=== PATIENT | male | born 1955 | race Caucasian/White ===

== ENCOUNTER 2020-04-08 23:59 | Observation (INO) ==
[2020-04-09] MEDS ORDERED: NITROGLYCERIN SL 0.4 MG/TAB TAB SL STA (00:17)
--- NOTE | 2020-04-09 00:22 | Emergency Department Note ---
Impression & Plan Non-ST elevation NC (NSTEMI) ED Provider Note Name: JUAN DIEGO ALVAREZ Age: 65 Sex: M Arrives Via: Walk-In Informant: Patient, ED Provider: Ashish Alberts MD Chief Complaint: Chest Pain Impression: NSTEMI Medical Decision Makin yr old male without PMH who's father has CAD arrives with non-exertional chest pain last few hours after episode chest pain with exertion 2 days ago. Pain resolving with SLNTG but complaining of pain radiating to back thus CTA obtained which was negative. EKG with lateral ST depressions. Labs with elevated Troponin and CXR unremarkable. Vitals with HTN initially improving with slntg. Placed nitro paste as well. ASA given along with initiating heparin bolus/gtt after discussing risks/benefits. Hospitalist consulted for further management. Without STEMI on EKG and fact that chest pain resolved I do not feel Heart Alert necessary at this time. Prior Medical Record and Triage/Nursing Notes reviewed by Me Additional history obtained from Differentials:Cardiac ischemia, aortic dissection, pulmonary embolism, pneumothorax, pneumonia, pericarditis, myocarditis, esophageal rupture, GERD, cholecystitis, pancreatitis, musculoskeletal, as well as other pathologies. Vital Signs: reviewed and remarkable for HTN Interventions: slntg, nitro paste, asa 324mg po, heparin bolus/gtt Labs:Reviewed and remarkable for ++Troponin Imaging:X ray results are stated below per my interpretation: Chest: 1 view: No infiltrate, no effusion, normal cardiac border. [facility] Radiologist interpretation reviewed by me: CTA Chest: no acute findings EKG:Per My Interpretation: Indication Chest Pain: NSR 82 bpm, qtc 467 with LAFB and no ectopy, there are anterior-lateral ST depression. Compared to EKG 02/11/19 ST depressions are new. Cardiac/Tele Monitoring: Cardiac Monitoring: An Order was placed for continuous cardiac monitoring. The monitor shows a rate of 80 with a normal sinus rhythm. Consults:Dr To BA Hospitalist Plan: Disposition:Hospitalization. Condition: Good History of Present Illness:65 yr old female arrives for evaluation of chest pain. Notes upper chest pain radiating to lower substernal chest for the last few hours. Initially noted similar, milder symptoms 2 days ago while shoveling snow which resolved with rest. Tonight symptoms occured while watching TV. Associated mild SHOB. Burning in nature. No syncope, cough, fevers, chills, nausea, vomiting, back pain, jaw pain, shoulder discomfort, abdominal pain, urinary/bowel symptoms, leg swelling, calf pain, rashes nor other symptoms. No medical history. Takes not medications. Exertion makes worse, rest makes better. ASA prior to arrival without improvement. Denies covid contacts. Father with NC and CABG history. ROS: See above HPI for pertinent positives & negatives. A total of 10 systems reviewed and were otherwise negative. Past Medical History:None Past Surgical History:Umbilical Hernia repair Family History:Father CAD Social History:Lives with , no smoking, uses chewing tobacco, occasional ETOH, retired, no drugs Home Medications:None Allergies:None Vitals:Blood Pressure: 158/102, Pulse 86, RR 20, T 36C, O2 97% on RA Physical Exam: GENERAL: Patient is anxious appearing and in mild distress. EYES: No scleral icterus, unremarkable pupils. ENT: Mucous membranes moist, no nasal congestion. NECK: No masses appreciated, nomeningismus, trachea is midline. RESPIRATORY: Mildly tachypneic on exam though not dyspneic. Clear to auscultation and equal bilaterally. No wheeze, no rhonchi. CARDIOVASCULAR: Regular rate and rhythm.No murmurs, rubs, gallops appreciated. GASTROINTESTINAL: Abdomen soft, non-tender, no peritonitis.Bowel sounds positive.No masses appreciated. BACK: No midline tenderness, no CVA tenderness EXTREMITIES: Normal motion all extremities, no cyanosis, no edema. NEUROLOGIC: Alert and oriented, no acute motor or sensory deficits, no focal weakness, cranial nerves grossly intact. SKIN: No rash, no jaundice, no diaphoresis. PSYCH: Appropriate though anxious GCS: 15 ED Course: Times/Reassessments: multiple, improving pain and looks well. Agreeable to hospitalization Ashish Alberts MD Past Med/Surg History Medical History (Updated 04/09/20 @ 02:05 by Ashish Alberts MD) Umbilical hernia without obstruction and without gangrene Surgical History H/O umbilical hernia repair (03/11/19) Umbilical Hernia Open Repair With Mesh Dr. Vivas 03-11-19 History of colonoscopy History of tooth extraction ALL TEETH 25 YRS AGO Family History (Updated 04/06/19 @ 13:08 by Milly Soriano MD) Mother Breast cancer Father Colorectal cancer Coronary heart disease Sister No problems noted. Son No problems noted. Daughter No problems noted. Denies family history of Ovarian cancer Prostate cancer Myocardial infarction Social History Smoking Status: Never smoker Second Hand Exposure: No; Hx Alcohol Use: Yes Alcohol type: beer Hx Substance Use: No Preferred Language: Yi Communication Ability: Effective Visual Impairment: No Limitations Hearing Ability: Normal Incident Coordinator Required: No Beliefs That Will Affect Care: None marital status: Current Living Situation: Spouse current occupational status: retired Feels Safe at Home: Yes Childhood Exposure to Second-Hand Smoke: Yes Dental Care, Regularly: No Physical Activity Frequency: 3-4 Times per Week Seatbelt Use: always Sunscreen Use: No Assistive Devices: Denture - Upper and Denture - Lower Allergies Allergies Allergy/AdvReac Type Severity Reaction Status Date / Time No Known Allergies Allergy Verified 04/09/20 00:26 Home Meds Home Medications Medication Instructions Recorded Confirmed No Known Home Medications 04/06/19 04/09/20 Results & Data (ED) Vital Signs Vital Signs - 24 hr 04/09/20 00:02 04/09/20 00:45 04/09/20 01:45 Temperature 36 C L Temperature Source Temporal Artery Scan Pulse Rate 89 Pulse Rate [Right] 96 H 82 Pulse Rhythm Regular Pulse Rhythm [Right] Regular Regular Pulse Strength Normal Pulse Strength [Right] Normal Normal Respiratory Rate 20 16 16 Respiratory Effort / Characteristics Non-Labored Spontaneous Non-Labored Spontaneous Non-Labored Spontaneous Respiratory Depth Normal Normal Normal Blood Pressure 158/102 H Blood Pressure [Right Arm] 126/82 149/86 H Blood Pressure Mean 120 Blood Pressure Mean [Right Arm] 96 107 Blood Pressure Position Sitting Blood Pressure Position [Right Arm] Sitting Lying Pulse Oximetry 97 99 98 Oxygen Delivery Method Room Air Room Air Room Air Sepsis Recent Fever Within 48 Hours No Sepsis New/Unexplained Change in Mental Status N/A Sepsis Action Taken by Nursing No Action Required 04/09/20 02:52 Temperature Temperature Source Pulse Rate Pulse Rate [Right] 64 Pulse Rhythm Pulse Rhythm [Right] Regular Pulse Strength Pulse Strength [Right] Normal Respiratory Rate 16 Respiratory Effort / Characteristics Non-Labored Spontaneous Respiratory Depth Normal Blood Pressure Blood Pressure [Right Arm] 147/95 H Blood Pressure Mean Blood Pressure Mean [Right Arm] 112 Blood Pressure Position Blood Pressure Position [Right Arm] Lying Pulse Oximetry 96 Oxygen Delivery Method Room Air Sepsis Recent Fever Within 48 Hours Sepsis New/Unexplained Change in Mental Status Sepsis Action Taken by Nursing Laboratory Data Result diagrams: 04/09/20 00:12 04/09/20 00:12 Lab Results 04/09/20 04/09/20 04/09/20 Range/Units 00:12 00:12 00:12 WBC 9.37 (4.8-10.8) K/uL RBC 5.48 (4.7-6.1) M/uL Hgb 16.7 (14.0-18.0) g/dL Hct 48.5 (42-52) % MCV 88.5 (80-100) fL MCH 30.5 (25-34) pg MCHC 34.4 (32-36) g/dL RDW Std Deviation 42.8 (36.4-46.3) fL RDW Coeff of Crys 13.1 (11.5-14.5) % Plt Count 262 (130-400) K/uL MPV 10.2 (7.4-10.4) fL Immature Gran % (Auto) 0.2 % Neut % (Auto) 65.0 % Lymph % (Auto) 25.3 % [place] % (Auto) 6.1 % Eos % (Auto) 3.0 % Baso % (Auto) 0.4 % Neut # (Auto) 6.09 (1.4-6.5) K/uL Lymph # (Auto) 2.37 (1.2-3.4) K/uL [place] # (Auto) 0.57 (0.11-0.59) K/uL Eos # (Auto) 0.28 (0-0.5) K/uL Baso # (Auto) 0.04 (0-0.2) K/uL Immature Gran # (Auto) 0.02 (0.00-0.02) K/uL PT 10.1 (9.0-12.0) Seconds INR 1.0 (0.9-1.1) APTT 25.2 (21.0-31.0) Seconds PTT Ratio 1.0 D-Dimer 290 (0-500) ug/L FEU Sodium 143 (136-145) mmol/L Potassium 3.6 (3.5-5.1) mmol/L Chloride 111 H (98-107) mmol/L Carbon Dioxide 23 (21-32) mmol/L Anion Gap 9.0 (3-11) BUN 20 H (7-18) mg/dl Creatinine 1.10 (0.6-1.4) mg/dl Est Cr Clr Drug Dosing 70.7 ml/min Est GFR ( Amer) 81.2 Est GFR (Non-Af Amer) 70.1 BUN/Creatinine Ratio 18.5 (10-20) Glucose 193 H (70-99) mg/dl Calcium 9.6 (8.5-10.1) mg/dl Magnesium 2.0 (1.8-2.4) mg/dl Troponin I 0.406 H* (0-0.045) ng/ml COVID-19 Eval Order SARS-CoV-2, RNA, NAAT (NEGATIVE) 04/09/20 04/09/20 Range/Units 00:12 00:12 WBC (4.8-10.8) K/uL RBC (4.7-6.1) M/uL Hgb (14.0-18.0) g/dL Hct (42-52) % MCV (80-100) fL MCH (25-34) pg MCHC (32-36) g/dL RDW Std Deviation (36.4-46.3) fL RDW Coeff of Crys (11.5-14.5) % Plt Count (130-400) K/uL MPV (7.4-10.4) fL Immature Gran % (Auto) % Neut % (Auto) % Lymph % (Auto) % [place] % (Auto) % Eos % (Auto) % Baso % (Auto) % Neut # (Auto) (1.4-6.5) K/uL Lymph # (Auto) (1.2-3.4) K/uL [place] # (Auto) (0.11-0.59) K/uL Eos # (Auto) (0-0.5) K/uL Baso # (Auto) (0-0.2) K/uL Immature Gran # (Auto) (0.00-0.02) K/uL PT (9.0-12.0) Seconds INR (0.9-1.1) APTT (21.0-31.0) Seconds PTT Ratio D-Dimer (0-500) ug/L FEU Sodium (136-145) mmol/L Potassium (3.5-5.1) mmol/L Chloride (98-107) mmol/L Carbon Dioxide (21-32) mmol/L Anion Gap (3-11) BUN (7-18) mg/dl Creatinine (0.6-1.4) mg/dl Est Cr Clr Drug Dosing ml/min Est GFR ( Amer) Est GFR (Non-Af Amer) BUN/Creatinine Ratio (10-20) Glucose (70-99) mg/dl Calcium (8.5-10.1) mg/dl Magnesium (1.8-2.4) mg/dl Troponin I (0-0.045) ng/ml COVID-19 Eval Order Covid19 [facility]Now [facility] SARS-CoV-2, RNA, NAAT NEGATIVE (NEGATIVE) Administered Medications Sodium Chloride (Nss 1000ml) 1,000 mls @ 125 mls/hr IV .Q8H [facility] Stop: 05/09/20 00:59 Last Admin: 04/09/20 01:07 Dose: 125 mls/hr Documented by: [id number] Heparin Sodium/Dextrose (Heparin Sodium/Dextrose) 25,000 units in 500 mls @ 0.02 mls/hr IV .Q24H REY; Protocol Stop: 05/09/20 02:14 Last Admin: 04/09/20 02:19 Dose: 1,350 units/hr, 27 mls/hr Documented by: [id number] Cosigned by: [id number] Discontinued Medications Aspirin (Aspirin 81 Mg Chew) 324 mg PO NOW STA Stop: 04/09/20 02:09 Last Admin: 04/09/20 02:19 Dose: 324 mg Documented by: [id number] Heparin Sodium (Porcine) (Heparin Sod (Porcine) 1000 Unit/Ml 10 Ml Vial) Confirm Administered Dose 10,000 units .ROUTE .STK-MED ONE Stop: 04/09/20 02:17 Last Admin: 04/09/20 02:19 Dose: 6,000 units Documented by: [id number] Cosigned by: [id number] Heparin Sodium/Dextrose (Heparin Iv Standard With Bolus) 1 ea IV NOW STA; Protocol Stop: 04/09/20 02:09 Last Admin: 04/09/20 02:20 Dose: 1 ea Documented by: [id number] Ioversol (Optiray 320 125ml) 125 ml IV ONCE ONE Stop: 04/09/20 01:34 Last Admin: 04/09/20 01:34 Dose: 117 ml Documented by: [id number] Nitroglycerin (Nitroglycerin Sl 0.4 Mg/Tab Tab) 0.4 mg SL NOW STA Stop: 04/09/20 00:18 Last Admin: 04/09/20 00:35 Dose: 0.4 mg Documented by: [id number] Nitroglycerin (Nitroglycerin 2% Ointment 30gm Tube) 1 inch EXT NOW ONE Stop: 04/09/20 00:57 Last Admin: 04/09/20 01:07 Dose: 1 inch Documented by: [id number] Discharge Plan Visit Data Chief Complaint: Chest Pain Stated Complaint: CHEST PAIN ED Provider: Ashish Alberts Discharge Problem: Non-ST elevation NC (NSTEMI) Forms Stand Alone Forms: [employer] Prescriptions Prescriptions: No Action No Known Home Medications RF: 0
[2020-04-09 00:23] LABS: Basophils # (auto) 0.04 K/uL (0-0.2); Basophils % (auto) 0.4 %; Eosinophils # (auto) 0.28 K/uL (0-0.5); Hematocrit (blood only) 48.5 % (42-52); Hemoglobin 16.7 g/dL (14.0-18.0); Immature Granulocytes # (auto) 0.02 K/uL (0.00-0.02); Immature Granulocytes % (auto) 0.2 %; Lymphocytes # (auto) 2.37 K/uL (1.2-3.4); Lymphocytes % (auto) 25.3 %; Mean Corpuscular Hemoglobin 30.5 pg (25-34); Mean Corpuscular Hgb Conc 34.4 g/dL (32-36); Mean Corpuscular Volume 88.5 fL (80-100); Mean Platelet Volume 10.2 fL (7.4-10.4); Monocytes # (auto) 0.57 K/uL (0.11-0.59); Monocytes % (auto) 6.1 %; Neutrophils # (auto) 6.09 K/uL (1.4-6.5); Platelet Count 262 K/uL (130-400); RDW Coefficient of Variation 13.1 % (11.5-14.5); RDW Standard Deviation 42.8 fL (36.4-46.3); Red Blood Count 5.48 M/uL (4.7-6.1); White Blood Count 9.37 K/uL (4.8-10.8)
[2020-04-09 00:40] LABS: BUN Creatinine Ratio 18.5 (10-20); Calcium 9.6 mg/dl (8.5-10.1); Creatinine Clr Calc Pharmacy 70.7 ml/min; Est GFR (African American) 81.2; Est GFR (Non-African American) 70.1; Potassium 3.6 mmol/L (3.5-5.1)
[2020-04-09 00:52] LABS: D Dimer 290 ug/L FEU (0-500); Partial Thromboplastin Time 25.2 Seconds (21.0-31.0); Prothrombin Time 10.1 Seconds (9.0-12.0)
[2020-04-09 00:56] LABS: Troponin I 0.406 ng/ml (0-0.045)
[2020-04-09] MEDS ORDERED: NITROGLYCERIN 2% OINTMENT 30GM TUBE EXT ONE (00:56)
[2020-04-09] MEDS ORDERED: SODIUM CHLORIDE 0.9% 1000ML 1,000 ML IV SCH (01:00)
[2020-04-09] MEDS ORDERED: OPTIRAY 320 125ml IV ONE (01:33)
[2020-04-09] MEDS ORDERED: ASPIRIN 81 MG CHEW PO STA (02:08)
[2020-04-09] MEDS ORDERED: HEPARIN SOD (PORCINE) 1000 UNIT/ML 10 ML VIAL ONE (02:16)
[2020-04-09] MEDS: HEPARIN SODIUM/DEXTROSE 25,000 UNITS/500 ML BAG IV SCH ×2 (02:19→15:35)
--- NOTE | 2020-04-09 03:46 | History & Physical Report ---
Date of Service April 09, 2020 Assessment & Plan Admission and Anticipated Discharge Date Admission Date: Previously healthy 65 yo M presenting with two episodes of chest pain, initially with activity and again at rest, with elevated troponin and EKG changes consistent with ST depression in V3,4,5,6. Troponin elevated at 0.406 CTA w/o PE or dissection, EKG CXR has elevation of left hemidiaphragm but otherwise unchanged from prior. - given Heparin with bolus, started ASA and Atorvastatin - sl nitro available prn - trending troponin - cardiology consulted - NPO after midnight for possible cath. tomorrow if indicated - ordered A1c and lipid profile - discussed dietary and lifestyle changes going forward for secondary prevention DVT: Heparin Code: full Diet: NPO after midnight History of Present Illness Chief Complaint: chest pain Primary Care Provider: Milly Soriano MD Kentrell Mendoza is a 65-year-old male who is here for chest pain. He developed the pain one day prior when he was removing snow from his roof. He had the pain in his mid chest, and thought it was due to being out in the cold. He came inside and the pain improved after 10-15 minutes. Then on the night of 04/08 he developed the pain again after watching a race and eating cheese and crackers. He has no history of GERD. The pain went from his lower neck down his central chest. At this time he changed and went to the ER. His pain was a 5/10 when he got to the ER, currently he is pain free with the pain lasting approximately 30- 45 minutes. Unclear if the Nitro was what lead to his improved symptoms. He also noted some trouble breathing with the chest pain, that he describes as breathing heavy and discomfort at the tops of his lungs. His only past medical history includes a umbilical hernia that was repaired without complications one year prior. He is not on any medications. He states that at home his blood pressure is normal, but he is stressed with what is happening. Social: uses snuff 0.5 - 1 can per day for the last 40 years states he has been exercising less since the pandemic started states he has had some weight gain since the pandemic started ED course: IVF, nitro, ASA CTA chest - negative Allergies Allergy/AdvReac Type Severity Reaction Status Date / Time No Known Allergies Allergy Verified 04/09/20 00:26 Home Medications Medication Instructions Recorded Confirmed Type No Known Home Medications 04/06/19 04/09/20 History Past Med/Surg History Medical History Umbilical hernia without obstruction and without gangrene Surgical History H/O umbilical hernia repair (03/11/19) Umbilical Hernia Open Repair With Mesh Dr. Vivas 03-11-19 History of colonoscopy History of tooth extraction ALL TEETH 25 YRS AGO Family History Mother Breast cancer Father Colorectal cancer Coronary heart disease Sister No problems noted. Son No problems noted. Daughter No problems noted. Denies family history of Ovarian cancer Prostate cancer Myocardial infarction Social History Smoking Status: Never smoker Second Hand Exposure: No; Do You Dip or Chew Tobacco: Yes; Tobacco Cessation Education Requested by Patient: No Hx Alcohol Use: No Hx Substance Use: No Preferred Language: [place]se Communication Ability: Effective Visual Impairment: No Limitations Hearing Ability: Normal Automotive Alignment Specialist Required: No Beliefs That Will Affect Care: None marital status: Current Living Situation: Spouse current occupational status: retired Other Information That Helps Us Care for You: No Feels Safe at Home: Yes Safety Concerns: Feels Safe At This Time Childhood Exposure to Second-Hand Smoke: Yes Dental Care, Regularly: No Physical Activity Frequency: 3-4 Times per Week Seatbelt Use: always Sunscreen Use: No Assistive Devices: None Review of Systems Review of Systems: Constitutional: denies fevers, chills, nausea, vomiting admits intermittent night sweats Head: denies headache, confusion admits lightheadedness Neuro: denies syncope, dysphagia, dysarthria, focal weakness, numbness, tingling ENT: denies stuffiness, sneezing, sore throat Cardiac: denies palpitations, hx. murmur, edema Pulm: denies cough, sputum production GI: denies diarrhea, constipation : denies dysuria Physical Exam Constitutional: WD/WN, vitals as above Eyes: PERRL, conjunctivae normal, anicteric sclerae Neck: normal visual inspection and trachea midline Respiratory: normal respiratory effort, lungs clear to auscultation Cardiovascular: RRR, no murmur, no edema Chest (Breasts): normal inspection/palpation of breasts Gastrointestinal (Abdomen): normal bowel sounds, soft, nontender, no hepatosplenomegaly Skin: no rashes, warm and dry Neurologic: awake; no focal motor deficits Psychiatric: A+Ox3, euthymic affect Apperance: appropriately dressed Eye Contact: good eye contact Results & Data Results & Data ([facility]) Vital Signs (Past 12 Hours) Vital Signs Temp Pulse Pulse Resp BP BP Pulse Ox 04/09/20 02:52 64 16 147/95 H 96 04/09/20 01:45 82 16 149/86 H 98 04/09/20 00:45 96 H 16 126/82 99 04/09/20 00:02 36 C L 89 20 158/102 H 97 CBC Results Results Complete Blood Count Results: RBC 5.48 M/uL (4.7-6.1) 04/09/20 WBC 9.37 K/uL (4.8-10.8) 04/09/20 Hgb 16.7 g/dL (14.0-18.0) 04/09/20 Hct 48.5 % (42-52) 04/09/20 Plt Count 262 K/uL (130-400) 04/09/20 Chemistry (BMP) Results BMP Results: Sodium 143 mmol/L (136-145) 04/09/20 Potassium 3.6 mmol/L (3.5-5.1) 04/09/20 Chloride 111 mmol/L (98-107) H 04/09/20 BUN 20 mg/dl (7-18) H 04/09/20 Creatinine 1.10 mg/dl (0.6-1.4) 04/09/20 Glucose 193 mg/dl (70-99) H 04/09/20 Code Status & VTE Plan VTE Prophylaxis Plan VTE Prophylaxis will be ordered: Yes Supervising Physician Co-Signing Physician Notes Patient seen and examined, chart reviewed, case discussed with Dr. Benton and I agree with his assessment and plan as above. Briefly, patient with exertional CP yesterday, CP at rest today. He states he has actually had exertional CP several times this month while out in the cold which resolves with 10-15 minutes of rest. Had episode of resting CP today. EKG with lateral ST depressions. Troponin x 1 elevated at 0.406 Patient CP free Unremarkable exam. No evidence of CHF Labs and images reviwed Assessment/Plan - Concern for NSTEMI -Heparin gtt -Trend troponin -Tele monitoring -Check AIC and Lipids for risk stratification -2D echo -REmainder of plan as above Resident Activity Tracking Resident Involvement: Resident Care Provided Care Provided: Adult Hospital Medicine
[2020-04-09] MEDS ORDERED: POLYETHYLENE (MIRALAX) 17 GM PACK PO PRN (04:06)
[2020-04-09] MEDS ORDERED: NITROGLYCERIN SL 0.4 MG/TAB TAB SL PRN (04:06)
[2020-04-09] MEDS ORDERED: ACETAMINOPHEN 325 MG TAB PO PRN (04:06)
--- NOTE | 2020-04-09 06:42 | Billing Data ---
Date of Service April 09, 2020 Coding Level of Care Code 43991 Initial Inpt Care Lvl 2
[2020-04-09 07:20] LABS: Chol HDL Ratio 3; Cholesterol 159 mg/dl (0-200); HDL Cholesterol 58 mg/dl; LDL Cholesterol Calculated 85 mg/dl; Triglycerides 78 mg/dl (0-150); VLDL Cholesterol 16 mg/dl
--- NOTE | 2020-04-09 07:21 | CT Scan Report ---
CT ANGIOGRAPHY OF THE CHEST DISSECTION PROTOCOL CLINICAL HISTORY: chest pain radiating to back COMPARISON STUDY: Chest radiographs February 11, 2019 and April 09, 2020. TECHNIQUE: Before and following the IV administration of 117 mL of Optiray-320, helical axial images of the chest were obtained. Maximal intensity projections and sagittal and coronal reformats were vi ewed on an independent 3D workstation. IV contrast was administered without complication. Automated exposure control was utilized for the study. A dose lowering technique was utilized adhering to the principles of ALARA. CT DOSE: 1025.16 mGy.cm FINDINGS: The caliber of the thoracic aorta is normal. There is no intramural hematoma or thoracic a ortic dissection. Mild cardiomegaly is noted. There is no pericardial effusion. No enlarged thoracic lymph nodes are noted. No pneumomediastinum is present. Linear and groundglass opacity within left lo wer lobe reflects atelectasis. There is no consolidation. No pneumothorax or pleural effusion is note d. There are no suspicious pulmonary nodules. No acute rib or thoracic spine fracture is present. Hyp odensities within the left renal sinus are partially visualized on this exam and favor parapelvic cys ts. Hydronephrosis is considered less likely but could appear similar. IMPRESSION: 1. No thoracic aortic dissection. 2. No acute process within the chest. ACT 112: Negative or not required by law. Electronically signed by: Julisu Brunson M.D. 04/09/2020 7:20 AM
[2020-04-09 07:22] LABS: Estimated Average Glucose 123 mg/dl; Hemoglobin A1C 5.9 % (4.5-5.6)
--- NOTE | 2020-04-09 07:25 | XRay Report ---
XR chest 1V portable CLINICAL HISTORY: Chest pain. COMPARISON STUDY: No previous studies for comparison. FINDINGS: Lung volumes are normal. Lungs are clear. There is no pneumothorax or pleural effusion. Car diac size is normal. Mediastinal contours are normal. There is no evidence for pulmonary edema. There is mild elevation of the left hemidiaphragm. IMPRESSION: No acute cardiopulmonary findings. ACT 112: Negative or not required by law. Electronically signed by: Julius Brunson M.D. 04/09/2020 7:24 AM
[2020-04-09 08:26] LABS: Partial Thromboplastin Ratio 4.5
[2020-04-09 08:44] LABS: Partial Thromboplastin Time 117.9 Seconds (21.0-31.0)
[2020-04-09] MEDS ORDERED: ATORVASTATIN 40 MG TAB PO SCH (09:00)
[2020-04-09] MEDS ORDERED: ASPIRIN 81 MG ECTAB PO SCH (09:00)
--- NOTE | 2020-04-09 11:27 | Cardiology Consultation ---
Date of Consultation April 09, 2020 Assessment & Plan (1) Non-ST elevation OR (NSTEMI): ASSESSMENT/PLAN: 1. NSTEMI: Brief history of crescendo angina over the past 2 weeks with 3 separate episodes, increasing in severity. Elevated troponins. Diagnosis discussed with him. Recommend cardiac catheterization. Echocardiogram. Continue aspirin, heparin drip, high-intensity statin therapy. Recommend low- dose beta-angel and low-dose MICHAEL-inhibitor if heart rate and blood pressure t olerates. Risks and benefits of cardiac catheterization discussed with he and his . He was made aware that CT surgery is not available at this facility. He was agreeable to undergo diagnostic coronary angiography and PCI, if deemed appropriate. 2. Disposition: Plan of care discussed with Dr. Chamorro of the primary hospitalist service. Cardiology will continue to follow. Thank you for allowing me to participate in the care of your patient. Please call for any other questions or concerns. Sincerely, Curt Mcgovern M.D. History of Present Illness Reason for Consultation: NSTEMI Requesting Physician: Dr. Zayra Ariza Attending Physician: Alexy Chamorro MD History of Present Illness Mr. Mendoza is a very pleasant 65-year-old gentleman without significant past me dical history who was admitted to [facility] on 04/09/2020 with chest discomfort and elevated troponin. 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 Symptoms resolved with rest. Two days ago, he had a much more severe case of substernal chest burning from his neck into the substernal area and could also noticed some radiation to his back. This occurred while removing snow from his roof. He also felt dyspneic. Symptoms resolved within 10-15 minutes of rest inside his home. Last night, after climbing stairs to use the restroom, coming back down the stairs, and sitting to watch TV he noted more dyspnea and substernal chest discomfort. Symptoms resolved in approximately 15 minutes while in route to the hospital. He has not had any further chest discomfort. When he arrived at the emergency department, he was noted to have an elevated troponin at 0.406. He was chest pain-free. ECG demonstrated sinus rhythm with left anterior fascicular block and nonspecific ST abnormality in the anterolateral leads. He has not had a repeat ECG, although 1 was ordered at this time. He was placed on heparin drip and admitted by the hospitalist service. He received aspirin 324 mg. A repeat troponin continued to trend upward is 0.946. He denies a history of hypertension, dyslipidemia, diabetes. He takes no medic ations at home. He is currently chest pain-free. He has had chronic occasional lightheadedness when changing positions quickly but no syncope or near-syncope. He denies melena, hematochezia, hematuria, or other bleeding. He denies edema or palpitations. No orthopnea. Review of systems: As above. Review of systems otherwise negative/unremarkable. Family history: Father had CABG in his 40s to 50s. Social history: He quit smoking greater than 30 years ago after approximately 5 pack years. Occasional alcohol. No drugs. Lives at home with his , [place]. He has a son and a daughter. One grandchild. 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 He is unaccompanied. Allergies Allergy/AdvReac Type Severity Reaction Status Date / Time No Known Allergies Allergy Verified 04/09/20 00:26 Home Medications Medication Instructions Recorded Confirmed Type No Known Home Medications 04/06/19 04/09/20 History Patient History Medical History Umbilical hernia without obstruction and without gangrene Surgical History H/O umbilical hernia repair (03/11/19) Umbilical Hernia Open Repair With Mesh Dr. Vivas 03-11-19 History of colonoscopy History of tooth extraction ALL TEETH 25 YRS AGO Family History Mother Breast cancer Father Colorectal cancer Coronary heart disease Sister No problems noted. Son No problems noted. Daughter No problems noted. Denies family history of Ovarian cancer Prostate cancer Myocardial infarction Social History Smoking Status: Never smoker Second Hand Exposure: No; Do You Dip or Chew Tobacco: Yes; Tobacco Cessation Education Requested by Patient: No Hx Alcohol Use: No Hx Substance Use: No Preferred Language: Puerto Rican Communication Ability: Effective Visual Impairment: No Limitations Hearing Ability: Normal Sugar Sampler Required: No Beliefs That Will Affect Care: None marital status: Current Living Situation: Spouse current occupational status: retired Other Information That Helps Us Care for You: No Feels Safe at Home: Yes Safety Concerns: Feels Safe At This Time Childhood Exposure to Second-Hand Smoke: Yes Dental Care, Regularly: No Physical Activity Frequency: 3-4 Times per Week Seatbelt Use: always Sunscreen Use: No Assistive Devices: None Physical Exam Physical Exam: Gen.: No acute distress. Alert and oriented. HEENT: Anicteric sclera. Neck: No JVD. No bruits. Normal carotid upstrokes bilaterally. Cardiac: PMI was nondisplaced. No ventricular heave. Regular rate and rhythm. Normal S1-S2. No murmurs, rubs, or gallops. Pulmonary: Clear to auscultation bilaterally without wheezes, rales, or rhonchi. Abdomen: Soft, nontender, nondistended, with normoactive bowel sounds. No bruits noted. Extremities: 2+ radial pulses bilaterally. 2+ posterior tibialis pulses bilaterally. No edema or cyanosis. No palpable cords. Psychiatric: Affect appears appropriate. Results & Data ([facility]) Vital Signs (Past 12 Hours) Vital Signs Temp Pulse Pulse Resp BP BP Pulse Ox 04/09/20 07:38 36.7 C 66 18 126/70 94 04/09/20 07:16 54 L 04/09/20 05:14 73 04/09/20 04:06 36.5 C 64 16 158/84 H 97 04/09/20 02:52 64 16 147/95 H 96 04/09/20 01:45 82 16 149/86 H 98 04/09/20 00:45 96 H 16 126/82 99 04/09/20 00:02 36 C L 89 20 158/102 H 97 Laboratory Results Laboratory Results - last 24 hr 04/09/20 04/09/20 04/09/20 00:12 00:12 00:12 WBC 9.37 RBC 5.48 Hgb 16.7 Hct 48.5 MCV 88.5 MCH 30.5 MCHC 34.4 RDW Std Deviation 42.8 RDW Coeff of Crys 13.1 Plt Count 262 MPV 10.2 Immature Gran % (Auto) 0.2 Neut % (Auto) 65.0 Lymph % (Auto) 25.3 [place] % (Auto) 6.1 Eos % (Auto) 3.0 Baso % (Auto) 0.4 Neut # (Auto) 6.09 Lymph # (Auto) 2.37 [place] # (Auto) 0.57 Eos # (Auto) 0.28 Baso # (Auto) 0.04 Immature Gran # (Auto) 0.02 PT 10.1 INR 1.0 APTT 25.2 PTT Ratio 1.0 D-Dimer 290 Sodium 143 Potassium 3.6 Chloride 111 H Carbon Dioxide 23 Anion Gap 9.0 BUN 20 H Creatinine 1.10 Est Cr Clr Drug Dosing 70.7 Est GFR ( Amer) 81.2 Est GFR (Non-Af Amer) 70.1 BUN/Creatinine Ratio 18.5 Glucose 193 H Estimat Average Glucose Hemoglobin A1c Calcium 9.6 Magnesium 2.0 Troponin I 0.406 H* Triglycerides Cholesterol LDL Cholesterol, Calc VLDL Cholesterol, Calc HDL Cholesterol Cholesterol/HDL Ratio COVID-19 Eval Order SARS-CoV-2, RNA, NAAT 04/09/20 04/09/20 04/09/20 00:12 00:12 06:25 WBC RBC Hgb Hct MCV MCH MCHC RDW Std Deviation RDW Coeff of Crys Plt Count MPV Immature Gran % (Auto) Neut % (Auto) Lymph % (Auto) [place] % (Auto) Eos % (Auto) Baso % (Auto) Neut # (Auto) Lymph # (Auto) [place] # (Auto) Eos # (Auto) Baso # (Auto) Immature Gran # (Auto) PT INR APTT PTT Ratio D-Dimer Sodium Potassium Chloride Carbon Dioxide Anion Gap BUN Creatinine Est Cr Clr Drug Dosing Est GFR ( Amer) Est GFR (Non-Af Amer) BUN/Creatinine Ratio Glucose Estimat Average Glucose 123 Hemoglobin A1c 5.9 H Calcium Magnesium Troponin I Triglycerides Cholesterol LDL Cholesterol, Calc VLDL Cholesterol, Calc HDL Cholesterol Cholesterol/HDL Ratio COVID-19 Eval Order [facility] SARS-CoV-2, RNA, NAAT NEGATIVE 04/09/20 04/09/20 04/09/20 06:25 06:25 07:52 WBC RBC Hgb Hct MCV MCH MCHC RDW Std Deviation RDW Coeff of Crys Plt Count MPV Immature Gran % (Auto) Neut % (Auto) Lymph % (Auto) [place] % (Auto) Eos % (Auto) Baso % (Auto) Neut # (Auto) Lymph # (Auto) [place] # (Auto) Eos # (Auto) Baso # (Auto) Immature Gran # (Auto) PT INR APTT 117.9 H* PTT Ratio 4.5 D-Dimer Sodium Potassium Chloride Carbon Dioxide Anion Gap BUN Creatinine Est Cr Clr Drug Dosing Est GFR ( Amer) Est GFR (Non-Af Amer) BUN/Creatinine Ratio Glucose Estimat Average Glucose Hemoglobin A1c Calcium Magnesium Troponin I 0.946 H* Triglycerides 78 Cholesterol 159 LDL Cholesterol, Calc 85 VLDL Cholesterol, Calc 16 HDL Cholesterol 58 Cholesterol/HDL Ratio 3 COVID-19 Eval Order SARS-CoV-2, RNA, NAAT Diagnostic Findings ECG personally reviewed: ECG 04/09/2020: Sinus rhythm 82 beats per minute. LAFB. LVH. Nonspecific T- wave abnormality in the anterolateral leads. CTA chest 04/09/2020 reviewed: No thoracic aortic dissection. No acute process within the chest per Radiology. Medications Administered Current Inpatient Medications Acetaminophen (Acetaminophen 325 Mg Tab) 650 mg PO Q4H PRN PRN Reason: pain/fever Stop: 05/09/20 04:05 Aspirin (Aspirin 81 Mg Ectab) 81 mg PO [facility] Stop: 05/09/20 08:59 Last Admin: 04/09/20 08:53 Dose: 81 mg Documented by: Atorvastatin Calcium (Atorvastatin 40 Mg Tab) 40 mg PO [facility] Stop: 05/09/20 08:59 Last Admin: 04/09/20 08:52 Dose: 40 mg Documented by: Heparin Sodium/Dextrose (Heparin Sodium/Dextrose) 25,000 units in 500 mls @ 0 mls/hr IV .Q0M [facility]; Protocol Stop: 05/09/20 02:14 Last Titration: 04/09/20 09:52 Dose: 1,150 units/hr, 23 mls/hr Documented by: Nitroglycerin (Nitroglycerin Sl 0.4 Mg/Tab Tab) 0.4 mg SL Q15M PRN PRN Reason: Chest Pain Stop: 05/09/20 04:05 Polyethylene Glycol (Polyethylene (Miralax) 17 Gm Pack) 17 gm PO DAILY PRN PRN Reason: Constipation Stop: 05/09/20 04:05 PG Care Time/CCT Total # of Minutes Spent Total Time Spent with Patient: Total time spent is greater than 50% in coordination of care (as documented) at patient's floor/unit and/or counseling patient: Coding Level of Care Code 40147 Initial Inpt Care Lvl 3 Diagnoses Non-ST elevation OR (NSTEMI) I21.4
--- NOTE | 2020-04-09 11:34 | Pre Anesthesia Assessment ---
Date of Service April 09, 2020 Pre Sedation Assessment Vital Signs Temp Pulse Pulse Resp BP BP Pulse Ox 04/09/20 07:38 36.7 C 66 18 126/70 94 04/09/20 07:16 54 L 04/09/20 05:14 73 04/09/20 04:06 36.5 C 64 16 158/84 H 97 04/09/20 02:52 64 16 147/95 H 96 04/09/20 01:45 82 16 149/86 H 98 04/09/20 00:45 96 H 16 126/82 99 04/09/20 00:02 36 C L 89 20 158/102 H 97 Cardiovascular RRR, no murmur, no edema Respiratory normal respiratory effort, lungs clear to auscultation Pre-Sedation Airway Assessment Smoking Status: Former smoker Mallampati Class: III ASA: ASA3 NPO Status Date of Last Intake of Fluids: 04/08/20 Time of Last Intake of Fluids: 22:00 Date of Last Intake of Solid Food: 04/08/20 Time of Last Intake of Solid Foods: 22:00 Procedure Planning Contraindications for Sedation: none Current Medications Reviewed: Yes Notes The planned sedation has been discussed with the patient. Informed Consent was obtained. I have identified the patient, determined the appropriateness of sedation and have assessed the patient immediately prior to the procedure. All medicine(s) and interventions are by my order.
[2020-04-09] MEDS ORDERED: HEPARIN (PORCINE) 1000 UNIT/ML 10 ML (CATH LAB USE ONLY) ONE (11:45)
[2020-04-09] MEDS ORDERED: fentaNYL citrate 100 MCG/2 ML VIAL ONE (11:45)
[2020-04-09] MEDS ORDERED: niCARdipine HCL INJ 2.5 MG/ML 10 ML AMP ONE (11:45)
[2020-04-09] MEDS ORDERED: MIDAZOLAM HCL 1 MG/ML 2ML VIAL ONE (11:45)
[2020-04-09] MEDS ORDERED: NITROGLYCERIN/D5W 100MCG/ML 20ML SYR ONE (11:46)
--- NOTE | 2020-04-09 11:56 | History & Physical Bridge Note ---
Date of Service April 09, 2020 History & Physical Bridge Note I have examined the patient, reviewed the History & Physical and in the interval since the performance of the History & Physical I have noted the following changes of clinical significance: no changes noted No present chest pain. Discussed with cardiology who plan for [facility] today. Patient NPO and in agreement. Continue medical care as per admission note.
--- NOTE | 2020-04-09 12:51 | Cardiac Catheterization ---
[facility] Data: Head Inspector And Center Marker Cardiac Status Clinical evaluation leading to the procedure CAD Presenation: Non STEMI Anginal Classification: CCS III Heart Failure: No Cardiogenic Shock within 24 Hours: No Cardiac Arrest within 24 Hours: No Imaging Studies Past 6 Months: Yes Stress Studies Past 6 Months: No Standard Exercise Test: No Stress Echocardiogram: No Stress Testing w/SPECT MPI: No Cardiac CTA: No Coronary Anatomy Dominant: Co-Dominant Left Ventricular Angiography EF (%): n/a Diagnostic Physicians Name: Boy Mcgovern MD Status: Elective Closure Device Percutaneous Entry Location: Radial Closure Device: Radial Band Recommendations: CABG Cardiac Cath Procedure Full Procedure Date April 09, 2020 Pre-Procedure Diagnosis Pre-Procedure Diagnosis: Non STEMI AUC Score AUC Score: 9 Post-Procedure Diagnosis Post-Procedure Diagnosis: Severe CAD and Normal Intracardiac Pressures Procedure(s) Performed Procedure(s) Performed: Coronary Angiography and Left Heart Cath Abap Developer Boy Mcgovern MD Furniture Painter(s) Toby Monique Estimated Blood Loss Estimated Blood Loss: < 25 ml Medication(s) Medication(s): Fentanyl, Heparin, Lidocaine 1%, Nicardipine and Versed Summary of Findings Procedures: 1. Coronary angiography 2. Left heart catheterization 3. Moderate sedation Indication: Non-ST elevation myocardial infarction with symptom onset over the past 2 weeks, with crescendo angina. Coronary angiography: 1. Left main coronary artery: Large caliber. No CAD. 2. Left anterior descending: Large caliber vessel. Early mid LAD 90% hazy stenosis. Distal LAD 50 to 70%. Apical LAD 70%. Large early/high D1 with proximal 70% stenosis and mid 40% stenosis. Small D2. GOLD-3 flow. 3. Circumflex: Large and codominant. Proximal circumflex 90%. Mid circumflex 50 to 60%. Large OM1 proximal 70%. Medium caliber OM 2 proximal 50 to 70%. Sm all PL1, large PL2, large PDA without significant CAD. GOLD-3 flow. 4. Right coronary artery: Medium caliber and codominant. Ostial RCA 70%. Mid RCA 100%. Right to right bridging and left to right collaterals. Left heart catheterization: 1. Left ventriculography was not performed. 2. No aortic stenosis. 3. Normal LVEDP; 12 mmHg. Moderate sedation: 1. Sedation start time: 11:54 AM 2. Sedation end time: 12:20 PM Impression: 1. Severe multivessel CAD. 2. Occluded codominant mid RCA with right to right and left to right collaterals. 3. No significant aortic stenosis. 4. Normal left-sided filling pressure. Plan: 1. Recommend transfer to [place] [facility] for evaluation of multivessel CABG. 2. Continue heparin drip after hemostasis of the radial access site. Hemodynamics Rest Ao:: 115/66 Final Ao: 124/71 LV: 122/2/12 Recommendations Recommendations: CABG Specimens Specimens: None Radiation Exposure (mGy) 1416 mGy. Fluoro time 7.3 min. Contrast (mls) 50 ml Procedural Complication(s) None Disposition PCU I attest to the content of the Intraoperative Record and any orders documented therein. Any exceptions are noted below. [facility] Card Cath Procedure Codes Cardiac Catheterization Procedure 1: Cardiovascular Cath Procedures: 09924 Coronaries and LHC (+/-LV) Moderate Sedation Procedure 1: Sedation/Anesthesia: 52804 Mod Sedation by the same physician;Init15 Min Child Age 5 & Up Procedure 2: Sedation/Anesthesia: 64469 Mod Sedation by the same physician; Ea [id number] Minutes PG Care Time/CCT Total # of Minutes Spent Total Time Spent with Patient: Total time spent is greater than 50% in coordination of care (as documented) at patient's floor/unit and/or counseling patient:
--- NOTE | 2020-04-09 13:36 | Post Anesthesia Assessment ---
Date of Service April 09, 2020 Post Sedation Assessment Vital Signs Temp Pulse Pulse Resp BP BP BP 04/09/20 13:00 60 18 123/90 04/09/20 12:45 58 L 18 130/78 04/09/20 12:40 57 L 18 130/79 04/09/20 12:35 60 18 128/80 04/09/20 12:30 63 18 130/87 130/87 04/09/20 07:38 36.7 C 66 18 126/70 04/09/20 07:16 54 L 04/09/20 05:14 73 04/09/20 04:06 36.5 C 64 16 158/84 H 04/09/20 02:52 64 16 147/95 H 04/09/20 01:45 82 16 149/86 H 04/09/20 00:45 96 H 16 126/82 04/09/20 00:02 36 C L 89 20 158/102 H Pulse Ox 04/09/20 13:00 94 04/09/20 12:45 94 04/09/20 12:40 96 04/09/20 12:35 95 04/09/20 12:30 94 04/09/20 07:38 94 04/09/20 07:16 04/09/20 05:14 04/09/20 04:06 97 04/09/20 02:52 96 04/09/20 01:45 98 04/09/20 00:45 99 04/09/20 00:02 97 Recovery Score Activity: Moves 4 extremities Respiration: Deep Breath/Cough Circulation: +/-20% PreAnes Value Consciousness: Fully Awake Oxygen Saturation: > 92% On Room Air Post Anesthesia Score: 10 Discharge Sedation Level of Care: Fast Track Phase II Post Sedation Plan On clinical assessment, the patient appears to have tolerated the sedation without complications. Patient is recovering as anticipated. Patient will continue to be monitored by nursing and may be discharged when sedation discharge criteria are met per below protocol. Upon Completions of procedure up to 15 minutes continue every 5 minute vital signs and the P.A.R. score; then discharge to a Phase I or Fast Track to Phase II per the following guidelines: * Discharge Patient to appropriate Phase II area if PAR is 8 or greater or return to pre- procedure baseline. The post - procedure orders will be as directed. * If PAR score is less than 8 or not return to pre-procedure baseline then patient will follow Phase I monitoring till PAR is reached for Phase II. The Phase I may be done in procedure room or may call to secure a Phase I area. * If naloxone or flumazenil are used for reversal, hold in Phase I for continued monitoring from when last reversal dose was given for a minimum of 60 minutes or longer pending the nurse and/or physician discretion of patient condition before discharge to Phase II. Please call the Sedation Physician to re-evaluate and complete post-note for discharge to Phase II area. Do NOT discharge from procedure sedation or Phase 1 until post- sedation evaluation note is complete by procedure /sedation MD Sedation Discharge Instructions to be given to the patient at discharge to home.
[2020-04-09] MEDS ORDERED: METOPROLOL TARTRATE 25 MG TAB PO SCH (14:00)
--- NOTE | 2020-04-09 15:17 | Discharge Summary ---
Date of Service April 09, 2020 Admission HPI Per Admitting Provider Kentrell Mendoza is a 65-year-old male who is here for chest pain. He developed the pain one day prior when he was removing snow from his roof. He had the pain in his mid chest, and thought it was due to being out in the cold. He came inside and the pain improved after 10-15 minutes. Then on the night of 04/08 he developed the pain again after watching a race and eating cheese and crackers. He has no history of GERD. The pain went from his lower neck down his central chest. At this time he changed and went to the ER. His pain was a 5/10 when he got to the ER, currently he is pain free with the pain lasting approximately 30- 45 minutes. Unclear if the Nitro was what lead to his improved symptoms. He also noted some trouble breathing with the chest pain, that he describes as breathing heavy and discomfort at the tops of his lungs. His only past medical history includes a umbilical hernia that was repaired without complications one year prior. He is not on any medications. He states that at home his blood pressure is normal, but he is stressed with what is happening. Social: uses snuff 0.5 - 1 can per day for the last 40 years states he has been exercising less since the pandemic started states he has had some weight gain since the pandemic started ED course: IVF, nitro, ASA CTA chest - negative Principal Diagnosis Triple vessel disease Discharge Exam Constitutional WD/WN, vitals as above Eyes EOM intact bilaterally; no conjunctival abnormality ENMT external ear and nose normal, oropharynx normal Neck trachea midline, no thyromegaly normal visual inspection Respiratory normal respiratory effort, lungs clear to auscultation no respiratory distress Cardiovascular RRR, no murmur, no edema Gastrointestinal (Abdomen) Inspection/Auscultation: abdomen normal to inspection; abdomen not distended Musculoskeletal no cyanosis or clubbing, extremities motor strength 5/5 Skin no rashes, warm and dry Neurologic moves all extremities and awake Psychiatric Orientation: alert, oriented to person and cooperative Discharge Data Allergies Allergy/AdvReac Type Severity Reaction Status Date / Time No Known Allergies Allergy Verified 04/09/20 00:26 Consultations 04/09/20 02:08 ED Decision to Admit Stat 04/09/20 04:06 Consult Cardiology Routine Consult Case Management - Discharge Planning Routine 04/09/20 14:01 Burn CD for patient Stat Procedures Performed Operation Date: 04/09/20 11:30 Actual Procedures p Cath, Left with Cors and Vent - Boy Mcgovern MD s Cineradiography w/Routine Exam - Boy Mcgovern MD Ordered Studies 04/09/20 00:56 CT angio chest dissec wo/w con Urgent 04/09/20 11:17 CL Cath Imgs for PACS use only Routine Hospital Course (1) Non-ST elevation [place] (NSTEMI): NSTEMI with troponin peak of 1.7 by the time of discharge. Left heart cath showed: Coronary angiography: 1. Left main coronary artery: Large caliber. No CAD. 2. Left anterior descending: Large caliber vessel. Early mid LAD 90% hazy stenosis. Distal LAD 50 to 70%. Apical LAD 70%. Large early/high D1 with proximal 70% stenosis and mid 40% stenosis. Small D2. GOLD-3 flow. 3. Circumflex: Large and codominant. Proximal circumflex 90%. Mid circumflex 50 to 60%. Large OM1 proximal 70%. Medium caliber OM 2 proximal 50 to 70%. Small PL1, large PL2, large PDA without significant CAD. GOLD-3 flow. 4. Right coronary artery: Medium caliber and codominant. Ostial RCA 70%. Mid RCA 100%. Right to right bridging and left to right collaterals. Left heart catheterization: 1. Left ventriculography was not performed. 2. No aortic stenosis. 3. Normal LVEDP; 12 mmHg. Moderate sedation: 1. Sedation start time: 11:54 AM 2. Sedation end time: 12:20 PM Impression: 1. Severe multivessel CAD. 2. Occluded codominant mid RCA with right to right and left to right collaterals. 3. No significant aortic stenosis. 4. Normal left-sided filling pressure. Plan: 1. Recommend transfer to [place] [facility] for evaluation of multivessel CABG. 2. Continue heparin drip after hemostasis of the radial access site. Transfer to [facility] for plan for bypass. Total Time Total Time Spent Total Time Spent (In Minutes): 35 Discharge Plan Discharge Items Patient Disposition: Transfer Acute Care Hospital Reason For Visit: CHEST PAIN Discharge Diagnosis: Triple vessel disease Activity: Resume your previous activity Non-emergency contact: Primary Care Provider and Dimension Warehouse Supervisor Follow-up/Referrals: Milly Soriano MD [Primary Care Provider] - Diet: Heart Healthy Addtl Attending Provider Instructions: Admitted with small NSTEMI (troponin 0.9 at time of discharge). Left heart cath showed triple vessel disease. Transferred to [facility] for plan for CABG. Pending Studies at Discharge: No Stand-Alone Forms: My [employer] Skilled Items Patient informed of condition?: No DNR: No Discharge Level of Care: Other Communicable Disease: No Discharge Prognosis: Stable Lines: Peripheral IV Urinary Catheter: No Medications and DC Order Prescriptions: No Action No Known Home Medications RF: 0 Discharge Orders: Discharge Order (Routine); Ordered 04/09/20 Ordered By: Alexy Chamorro Admission Data Admit Date/Time: 04/09/20 03:07 Attending Provider: Alexy Chamorro Admit Provider: Senia Ariza Primary Care Provider: Milly Soriano Other Providers: Boy Mcgovern ; Alexy Chamorro Coding Level of Care Code D/C Day Management >30 mins Diagnoses Non-ST elevation NH (NSTEMI) I21.4
--- NOTE | 2020-04-09 19:33 | XCELERA ---
[id number]
--- NOTE | 2020-04-10 05:51 | Electrocardiogram Report ---
Test Reason : Blood Pressure : / mmHG Vent. Rate : 082 BPM Atrial Rate : 082 BPM P-R Int : 148 ms QRS Dur : 120 ms QT Int : 400 ms P-R-T Axes : 039 -53 073 degrees QTc Int : 467 ms Poor data quality, interpretation may be adversely affected Normal sinus rhythm Left anterior fascicular block Left ventricular hypertrophy with QRS widening and repolarization abnormality Abnormal ECG When compared with ECG of 11-FEB-2019 10:18, ST now depressed in Anterolateral leads Nonspecific T wave abnormality no longer evident in Inferior leads Confirmed by Boy Mcgovern ([id number]) on 04/10/2020 5:51:38 AM Referred By: REFERRED SELF Confirmed By:Boy Mcgovern
--- NOTE | 2020-04-10 06:35 | Electrocardiogram Report ---
Test Reason : Blood Pressure : / mmHG Vent. Rate : 059 BPM Atrial Rate : 059 BPM P-R Int : 184 ms QRS Dur : 122 ms QT Int : 488 ms P-R-T Axes : 043 -48 100 degrees QTc Int : 483 ms Sinus bradycardia Left anterior fascicular block Abnormal ECG When compared with ECG of 09-APR-2020 00:09, T wave inversion now evident in Anterior leads Confirmed by Boy Mcgovern ([id number]) on 04/10/2020 6:34:39 AM Referred By: REFERRED SELF Confirmed By:Boy Mcgovern
== END 2020-04-09 16:30 | disposition short-term general hospital (02) ==
LOC: ED 23:59 → INTOOBSV 04-09 03:07 → SUATTDRO 04-09 03:07 → 2W 04-09 03:07 → 2S 04-09 13:31